=== PATIENT | male | born 1995 | race Caucasian/White ===

== ENCOUNTER 2017-08-23 15:45 | Emergency (ER) | payer OTHER ==
[~2017-08-23 15:45] MED LIST: AUG500 PO; IBUP800T37 PO
[2017-08-23 16:09] VITALS: BP 102/77
--- NOTE | 2017-08-23 16:31 | ER Report ---
History and Physical Time Seen By MD: 16:05 Hx. of Stated Complaint: got right foot run over by a forklift HPI/ROS CHIEF COMPLAINT: Right toe injury HISTORY OF PRESENT ILLNESS: Pt is a 21-year-old male accompanied by significant other, who presents to ED with complaint of right 3rd toe injury. He states that he was at work and was moving around a cart with about 1000 pounds on it. He states the cart ran over his boot and hurt his 3rd toe. He noticed some bruising and swelling of this area. He has not taken any medication for this. He has not applied ice. REVIEW OF SYSTEMS: Constitutional: No fever, no chills. Cardiovascular: No chest pain, no palpitations. Respiratory: No cough, no shortness of breath. Musculoskeletal: See history of present illness. Skin: No rashes. Neurological: No headache. Allergies: Coded Allergies: No Known Drug Allergies (Verified , 08/23/17) Home Meds No Active Prescriptions or Reported Meds Reviewed Nurses Notes: Yes Old Medical Records Reviewed: Yes Hx Smoking: No Smoking Status: Never Smoker Hx Substance Use Disorder: No Hx Alcohol Use: Yes (RARE) Constitutional Vital Sign - Last 24 Hours 08/23/17 16:09 Temp 97.9 Pulse 72 Resp 12 B/P (MAP) 102/77 Pulse Ox 97 O2 Delivery Room Air Physical Exam General Appearance: The patient is alert, has no immediate need for airway protection and no current signs of toxicity. Patient appears to be no acute distress. Respiratory: Chest is non tender, lungs are clear to auscultation. Cardiac: regular rate and rhythm Musculoskeletal: Neck: Neck is supple and non tender. There is distal left 3rd toe ecchymosis and swelling. There is some pain with palpation of this area. Full range of motion with some pain. PT and DP pulses are 2+ with normal capillary refill. Normal sensation. Skin: No rashes or lesions. Medical Decision Making EKG/Imaging EKG Interpretation Imaging Right 2nd Toe Xrays: IMPRESSION: No acute fracture or malalignment, right second toe. Report Dictated By: Fly Gomez at 08/23/2017 5:03 PM Report E-Signed By: Fly Gomez at 08/23/2017 5:03 PM ED Course/Re-evaluation ED Course Will obtain x-rays. 08/23/2017 5:34:48 pm - x-ray results with patient. It appears that there is no fracture. He likely has a toe contusion. Decision to Disposition Date: Aug 23, 2017 Decision to Disposition Time: 17:35 Depart Departure Latest Vital Signs Vital Signs Date Time Temp Pulse Resp B/P (MAP) Pulse Ox O2 Delivery O2 Flow Rate FiO2 08/23/17 16:09 97.9 72 12 102/77 97 Room Air Impression: Primary Impression: Crushing injury of second toe, right Condition: Improved Disposition: HOME OR SELF-CARE New Scripts No Active Prescriptions or Reported Meds Patient Instructions: Contusion in Adults (ED) Additional Instructions: Rest, ice, elevate. Follow-up with primary care provider to 3 days. If any worsening or concerning symptoms may return to the emergency department. Problem Qualifiers Primary Impression: Crushing injury of second toe, right Encounter type: initial encounter Qualified Codes: S97.121A - Crushing injury of right lesser toe(s), initial encounter JENNIFER DUBON PA-C Aug 23, 2017 16:30
--- NOTE | 2017-08-23 17:08 | RADIOLOGY IMAGING REPORT ---
FACILITY: [facility] PATIENT NAME: Chapo Matos : 1995 MR: [id number] V: [id number] EXAM DATE: ORDERING PHYSICIAN: JENNIFER DUBON TECHNOLOGIST: Location: [facility] [place] Patient: Chapo Matos : 1995 Visit/Account:[id number] Date of Sevice: 08/23/2017 TOE RIGHT FOOT SECOND DIGIT COMPARISON: None. HISTORY: right toe injury, ran over with cart TECHNIQUE: 3 views of the right second toe were obtained FINDINGS: BONES: Negative. No significant arthropathy, acute fracture, malalignment, or significant osseous l esion. SOFT TISSUES: Negative. No appreciable soft tissue swelling. EFFUSION: None suggested. OTHER: Negative. IMPRESSION: No acute fracture or malalignment, right second toe. Report Dictated By: Fly Gomez at 08/23/2017 5:03 PM Report E-Signed By: Fly Gomez at 08/23/2017 5:03 PM WSN:[id number]
== END 2017-08-23 17:33 | disposition home or self-care (01) ==
LOC: ER 16:15
DX: S97.121A Crushing injury of right lesser toe(s), initial encounter (principal)
CPT/HCPCS: 99282

== ENCOUNTER 2018-10-17 14:31 | Emergency (ER) | payer SELFPAY ==
--- NOTE | 2018-10-17 14:46 | ER Report ---
History and Physical Time Seen By MD: 14:46 Hx. of Stated Complaint: Pt. has had a migraine for 2 weeks now. Headache pain now 10/15. Family history of migraines HPI/ROS CHIEF COMPLAINT: Migraine HISTORY OF PRESENT ILLNESS: 22-year-old male patient presents to emergency room with complaint of migraine. Patient states he's had this daily for the past 2 and half weeks. He states this is the worst headache he's ever had. He denies having any nausea, vomiting or diarrhea. Patient states that he's not had any visual changes. Patient denies being under significant stress. He states that he has not taken anything other than ibuprofen for which is not been effective. Patient states that some days the pain can be quite significant other days to be less severe. Patient denies any fevers or chills. Patient states he did speak with his motherJose D there is a family history of migraines. She informed him that the family does have a history of increased pressure in the brain. He states it feels like his brain is to big for his skull. REVIEW OF SYSTEMS: Respiratory: No cough, no dyspnea. Cardiovascular: No chest pain, no palpitations. Gastrointestinal: No vomiting, no abdominal pain. Musculoskeletal: No back pain. Allergies: Coded Allergies: No Known Drug Allergies (Verified , 10/17/18) Home Meds Active Scripts Ibuprofen (IBUPROFEN) 800 Mg Tablet, 1 TAB PO Q8H PRN for PAIN, #21 TAB Prov:FELIX JUNG 10/17/18 Amoxicillin/Pot Clav 875-125 Mg Tab (AUGMENTIN 875-125 TABLET) 1 Each Tablet, 1 TAB PO Q12H, #14 TAB Prov:FELIX JUNG 10/17/18 Past Medical/Surgical History Patient has a past medical history of torn meniscus, back pain, alcohol use. Patient denies any surgical history. Reviewed Nurses Notes: Yes Hx Smoking: No Smoking Status: Never Smoker Hx Substance Use Disorder: No Hx Alcohol Use: Yes (RARE) Constitutional Vital Sign - Last 24 Hours 10/17/18 10/17/18 10/17/18 10/17/18 14:39 14:41 15:00 15:01 Temp 98.4 Pulse 68 79 Resp 16 B/P (MAP) 123/75 (91) 123/75 111/66 (81) Pulse Ox 92 94 O2 Delivery Room Air 10/17/18 10/17/18 10/17/18 10/17/18 15:30 15:31 15:36 15:41 Pulse 71 71 68 B/P (MAP) 111/77 (88) Pulse Ox 93 94 93 10/17/18 10/17/18 10/17/18 10/17/18 15:46 15:51 15:56 16:00 Pulse 63 66 63 B/P (MAP) 110/67 (81) Pulse Ox 92 94 94 10/17/18 10/17/18 10/17/18 10/17/18 16:01 16:06 16:11 16:13 Pulse 69 66 66 B/P (MAP) 102/58 (73) Pulse Ox 92 91 93 Physical Exam General Appearance: The patient is alert, has no immediate need for airway protection and no current signs of toxicity. Eyes: Pupils equal and round no injection. Posterior segments are unremarkable, there is no papilledema. Respiratory: Chest is non tender, lungs are clear to auscultation. Cardiac: regular rate and rhythm Gastrointestinal: Abdomen is soft and non tender, no masses, bowel sounds normal. Musculoskeletal: Neck: Neck is supple and non tender. Extremities have full range of motion and are non tender. Skin: No rashes or lesions. DIFFERENTIAL DIAGNOSIS: After history and physical exam differential diagnosis was considered for headache including but not limited to subarachnoid hemorrhage, migraine headache, tension headache and infectious causes such as meningitis, pharyngitis and sinusitis. Medical Decision Making Data Points Result Diagram: 10/17/18 1517 10/17/18 1517 Laboratory Hematology Test 10/17/18 15:17 Red Blood Count 5.19 M/uL (4.00-5.60) Mean Corpuscular Volume 88.5 fL (80.0-96.0) Mean Corpuscular Hemoglobin 29.9 pg (26.0-33.0) Mean Corpuscular Hemoglobin Concent 33.8 g/dL (32.0-36.0) Red Cell Distribution Width 13.7 % (11.5-14.5) Mean Platelet Volume 8.2 fL (7.2-11.1) Neutrophils (%) (Auto) 60.6 % (39.4-72.5) Lymphocytes (%) (Auto) 23.1 % (17.6-49.6) Monocytes (%) (Auto) 10.2 % (4.1-12.4) Eosinophils (%) (Auto) 5.5 % (0.4-6.7) Basophils (%) (Auto) 0.6 % (0.3-1.4) Nucleated RBC Relative Count (auto) 0.1 /100WBC Neutrophils # (Auto) 3.7 K/uL (2.0-7.4) Lymphocytes # (Auto) 1.4 K/uL (1.3-3.6) Monocytes # (Auto) 0.6 K/uL (0.3-1.0) Eosinophils # (Auto) 0.3 K/uL (0.0-0.5) Basophils # (Auto) 0.0 K/uL (0.0-0.1) Nucleated RBC Absolute Count (auto) 0.00 K/uL Erythrocyte Sedimentation Rate 2 mm/HOUR (0-15) Sodium Level 140 mmol/L (137-145) Potassium Level 4.2 mmol/L (3.5-5.0) Chloride Level 103 mmol/L (98-107) Carbon Dioxide Level 28 mmol/L (22-30) Blood Urea Nitrogen 9 mg/dl (9-21) Creatinine 0.90 mg/dl (0.66-1.25) Glomerular Filtration Rate Calc > 60.0 Random Glucose 75 mg/dl (75-110) Calcium Level 8.8 mg/dl (8.4-10.2) Total Bilirubin 0.3 mg/dl (0.2-1.3) Aspartate Amino Transf (AST/SGOT) 25 U/L (0-35) Alanine Aminotransferase (ALT/SGPT) 20 U/L (0-56) Alkaline Phosphatase 68 U/L (0-126) C-Reactive Protein < 0.5 mg/dl (<1.0) Total Protein 7.5 g/dl (6.3-8.2) Albumin 4.2 g/dl (3.5-5.0) Chemistry Test 10/17/18 15:17 White Blood Count 6.1 k/uL (4.5-11.0) Red Blood Count 5.19 M/uL (4.00-5.60) Hemoglobin 15.5 g/dL (14.0-18.0) Hematocrit 46.0 % (42.0-52.0) Mean Corpuscular Volume 88.5 fL (80.0-96.0) Mean Corpuscular Hemoglobin 29.9 pg (26.0-33.0) Mean Corpuscular Hemoglobin Concent 33.8 g/dL (32.0-36.0) Red Cell Distribution Width 13.7 % (11.5-14.5) Platelet Count 212 K/uL (150-450) Mean Platelet Volume 8.2 fL (7.2-11.1) Neutrophils (%) (Auto) 60.6 % (39.4-72.5) Lymphocytes (%) (Auto) 23.1 % (17.6-49.6) Monocytes (%) (Auto) 10.2 % (4.1-12.4) Eosinophils (%) (Auto) 5.5 % (0.4-6.7) Basophils (%) (Auto) 0.6 % (0.3-1.4) Nucleated RBC Relative Count (auto) 0.1 /100WBC Neutrophils # (Auto) 3.7 K/uL (2.0-7.4) Lymphocytes # (Auto) 1.4 K/uL (1.3-3.6) Monocytes # (Auto) 0.6 K/uL (0.3-1.0) Eosinophils # (Auto) 0.3 K/uL (0.0-0.5) Basophils # (Auto) 0.0 K/uL (0.0-0.1) Nucleated RBC Absolute Count (auto) 0.00 K/uL Erythrocyte Sedimentation Rate 2 mm/HOUR (0-15) Glomerular Filtration Rate Calc > 60.0 Calcium Level 8.8 mg/dl (8.4-10.2) Total Bilirubin 0.3 mg/dl (0.2-1.3) Aspartate Amino Transf (AST/SGOT) 25 U/L (0-35) Alanine Aminotransferase (ALT/SGPT) 20 U/L (0-56) Alkaline Phosphatase 68 U/L (0-126) C-Reactive Protein < 0.5 mg/dl (<1.0) Total Protein 7.5 g/dl (6.3-8.2) Albumin 4.2 g/dl (3.5-5.0) EKG/Imaging Imaging CT BRAIN NO CONTRAST HISTORY: 22-year-old male with headache. COMPARISON STUDIES: None. TECHNIQUE: Contiguous axial images were obtained from the skull base to the vertex. One of the following dose optimization techniques was utilized in the performance of this exam: Automated exposure control; adjustment of the mA and/or kV according to the patient's size; or use of an iterative reconstruction technique. Specific details can be referenced in the facility's radiology CT exam operational policy. FINDINGS: Hemorrhage: There is no intraparenchymal or extra-axial bleed. Ventricles / sulci / fissures: Negative Masses / midline shift: Negative White matter and lee matter: White matter is unremarkable. Extra-axial spaces: Negative Bones/skull base: Negative Visualized mastoid air cells / paranasal sinuses: There is prominent mucosal thickening involving the left sphenoid sinus that also involves the superior aspect of the left mastoid sinus. This could be the cause of the patient's headache. Scalp and soft tissues: Negative. IMPRESSION: 1. Unremarkable CT scan of the brain. 2. Prominent mucosal thickening in the left sphenoid sinus. This could be the cause of the patient's headache. Report Dictated By: Jm Peralta MD at 10/17/2018 3:42 PM Report E-Signed By: Jm Peralta MD at 10/17/2018 3:47 PM ED Course/Re-evaluation ED Course Patient was admitted and examined, history and physical were obtained. Differential diagnoses were considered. On examination lungs are clear, heart is regular, abdomen is soft and nontender. Patient was alert and oriented 4, cranial nerves II through XII grossly intact. An IV was started, a CBC, CMP, ESR, CRP were done. Lab results were unremarkable. CT scan of the head did show sphenoid sinusitis. I believe is likely the cause of the headache. We will go ahead and treat him with antibiotics. Patient is to take Tylenol or ibuprofen as needed for pain. Patient was given a prescription for ibuprofen 800 mg that he can take up to 3 times a day as needed for pain. He is to return to emergency room if condition worsens. Patient verbalized understanding and agreement with plan. Decision to Disposition Date: October 17, 2018 Decision to Disposition Time: 15:57 Depart Departure Latest Vital Signs Vital Signs Date Time Temp Pulse Resp B/P (MAP) Pulse Ox O2 Delivery O2 Flow Rate FiO2 10/17/18 16:13 102/58 (73) 10/17/18 16:11 66 93 10/17/18 14:41 98.4 16 Room Air Impression: Primary Impression: Sinusitis Condition: Improved Disposition: HOME OR SELF-CARE New Scripts Ibuprofen (IBUPROFEN) 800 Mg Tablet 1 TAB PO Q8H PRN for PAIN, #21 TAB Prov: FELIX JUNG 10/17/18 Amoxicillin/Pot Clav 875-125 Mg Tab (AUGMENTIN 875-125 TABLET) 1 Each Tablet 1 TAB PO Q12H, #14 TAB Prov: FELIX JUNG 10/17/18 Patient Instructions: Sinusitis (ED) Additional Instructions: Increase fluid intake. Get plenty of rest. Take prescribed medication for pain as directed. Return to the ER if condition worsens. Follow up with your primary care provider in the next week. Problem Qualifiers Primary Impression: Sinusitis Sinusitis location: sphenoidal Chronicity: acute Recurrence: non- recurrent Qualified Codes: J01.30 - Acute sphenoidal sinusitis, unspecified FELIX JUNG October 17, 2018 14:46
[2018-10-17 15:35] LABS: PLATELET COUNT, AUTOMATED 212 K/uL (150-450)
--- NOTE | 2018-10-17 15:51 | RADIOLOGY IMAGING REPORT ---
FACILITY: [facility] - [place] PATIENT NAME: Chapo Matos : 1995 MR: [id number] V: [id number] EXAM DATE: ORDERING PHYSICIAN: FELIX JUNG TECHNOLOGIST: Location: [facility] - [place] Patient: Chapo Matos : 1995 Visit/Account:[id number] Date of Sevice: 10/17/2018 CT BRAIN NO CONTRAST HISTORY: 22-year-old male with headache. COMPARISON STUDIES: None. TECHNIQUE: Contiguous axial images were obtained from the skull base to the vertex. One of the following dose optimization techniques was utilized in the performance of this exam: Autom ated exposure control; adjustment of the mA and/or kV according to the patient's size; or use of an i terative reconstruction technique. Specific details can be referenced in the facility's radiology C T exam operational policy. FINDINGS: Hemorrhage: There is no intraparenchymal or extra-axial bleed. Ventricles / sulci / fissures: Negative Masses / midline shift: Negative White matter and lee matter: White matter is unremarkable. Extra-axial spaces: Negative Bones/skull base: Negative Visualized mastoid air cells / paranasal sinuses: There is prominent mucosal thickening involving the left sphenoid sinus that also involves the superior aspect of the left mastoid sinus. This could be the cause of the patient's headache. Scalp and soft tissues: Negative. IMPRESSION: 1. Unremarkable CT scan of the brain. 2. Prominent mucosal thickening in the left sphenoid sinus. This could be the cause of the patient's headache. Report Dictated By: Jm Peralta MD at 10/17/2018 3:42 PM Report E-Signed By: Jm Peralta MD at 10/17/2018 3:47 PM WSN:[id number]
[2018-10-17] MEDS ORDERED: AMOX-559 PO (15:59)
[2018-10-17] MEDS ORDERED: IBUP800T37 PO (16:02)
[2018-10-17 16:13] VITALS: BP 102/58
== END 2018-10-17 16:26 | disposition home or self-care (01) ==
LOC: ER 14:54
DX: J01.30 Acute sphenoidal sinusitis, unspecified (principal)
CPT/HCPCS: 70450; 82040; 82247; 82310; 82374; 82435; 82565; 82947; 84075; 84132; 84155; 84295; 84450; 84460; 84520; 85025; 85651; 86140; 99284